=== PATIENT | female | born 1950 | race Caucasian/White ===

== ENCOUNTER 2021-04-20 06:23 | Inpatient (IN) | payer MEDICARE, OTHER ==
[2021-04-20] MEDS ORDERED: DUONEB 0.5-3 MG/3 ml Neb IH ONE ×2 (06:32→06:41)
[2021-04-20] MEDS ORDERED: PROVENTIL 2.5 MG/3 ML NEB IH ONE ×4 (06:32→06:40)
[2021-04-20] MEDS ORDERED: DELTASONE 20 MG PO ONE (06:34)
[2021-04-20] MEDS ORDERED: Vibramycin 100 MG PO ONE (06:34)
--- NOTE | 2021-04-20 06:35 | ERPHSYRPT ---
- History of Present Illness Source: patient Exam Limitations: no limitations Timing/Duration: week(s) (1) Associated Symptoms: shortness of breath, cough, other, No nausea, No vomiting Hx Tetanus, Diphtheria Vaccination/Date Given: No Hx Influenza Vaccination/Date Given: No Hx Pneumococcal Vaccination/Date Given: No <CARRIE ZABALA - Last Filed: 04/20/21 06:55> <AVELINA ROBLES - Last Filed: 04/20/21 08:20> - History of Present Illness Time Seen by Provider: 04/20/21 06:29 Physician History: The patient is a 70-year-old female who is a former smoker and quit in 2004 after smoking 1/2 pack to a pack a day since she was in her early 20s presents with a chief complaint of shortness of breath. Onset reported as a week ago. The patient reportedly has progressive shortness of breath, productive cough, rhinorrhea and sinus congestion as well as sore throat. Sore throat has since resolved. Of note, the patient's been vaccinated for Covid but has not been vaccinated for influenza. She has no formal diagnosis of emphysema or COPD. She reportedly took a home test for COVID-19 yesterday and was negative. She denies chest pain, nausea, vomiting, diarrhea, history of PE or DVT or any known malignancy. She denies any weight gain or any peripheral edema. She was accompanied by her who drove her to the emergency department. Her has been ill with similar symptoms. (CARRIE ZABALA) Allergies/Adverse Reactions: Penicillins Allergy (Mild, Verified 04/20/21 06:38) Hives Home Medications: Gabapentin 300 mg [Neurontin 300 mg] 2 cap PO HS 04/20/21 [History] Levothyroxine Sodium [Levothyroxine] 50 mcg PO DAILY 04/20/21 [History] Lisinopril 10 mg [Zestril 10 MG] 10 mg PO DAILY 04/20/21 [History] Metformin HCl 500 mg [Glucophage 500 MG] 500 mg PO BID 04/20/21 [History] Rosuvastatin Calcium 20 mg PO HS 04/20/21 [History] - Review of Systems Constitutional: No Fever, No Chills Eyes: No Symptoms Ears, Nose, & Throat: Nose Congestion, Sinus Drainage, Throat Pain, No Hoarse, No Painful Swallowing Respiratory: Cough, Dyspnea, Dyspnea on Exertion ([place]), Wheezing Cardiac: No Symptoms Abdominal/Gastrointestinal: No Abdominal Pain, No Nausea, No Vomiting Genitourinary Symptoms: No Symptoms Musculoskeletal: No Symptoms, No Deformity, No Fall Skin: No Symptoms Neurological: No Symptoms Psychological: No Symptoms Endocrine: No Symptoms Hematologic/Lymphatic: No Symptoms Immunological/Allergic: No Symptoms All Other Systems: Reviewed and Negative <VJCARRIE - Last Filed: 04/20/21 06:55> - Past Medical History Pertinent Past Medical History: Yes Neurological History: No Pertinent History ENT History: No Pertinent History Cardiac History: No Pertinent History Respiratory History: No Pertinent History Endocrine Medical History: Diabetes Type II Musculoskeletal History: Osteoarthritis GI Medical History: No Pertinent History History: No Pertinent History Psycho-Social History: No Pertinent History Female Reproductive Disorders: No Pertinent History Other Medical History: PREVIOUS L SHOULDER SURGERY FOR BONE SPURS. - Past Surgical History Past Surgical History: Yes Neuro Surgical History: No Pertinent History Cardiac: No Pertinent History Respiratory: No Pertinent History Gastrointestinal: No Pertinent History Genitourinary: No Pertinent History Musculoskeletal: No Pertinent History Female Surgical History: Tubal Ligation Other Surgical History: TONSILS ET ADNOIDS - Social History Smoking Status: Former smoker Exposure to second hand smoke: No Drug Use: none Patient Lives Alone: Yes <CARRIE ZABALA - Last Filed: 04/20/21 06:55> - Physical Exam General Appearance: no apparent distress, mild distress, alert Eye Exam: PERRL/EOMI, eyes nml inspection Ears, Nose, Throat Exam: normal ENT inspection, moist mucous membranes, No pharyngeal erythema, No tonsillar exudate Neck Exam: normal inspection, non-tender, supple, No JVD Respiratory Exam: airway intact, diminished breath sounds, wheezing (Coarse expiratory wheezing bilaterally in both upper and lower lobes when auscultating posteriorly), No chest tenderness Cardiovascular Exam: normal heart sounds, normal peripheral pulses, tachycardia, capillary refill <2 sec, No edema Gastrointestinal/Abdomen Exam: soft, No tenderness Pelvic Exam: not done Rectal Exam: deferred Back Exam: normal inspection Extremity Exam: normal inspection, No pedal edema, No swelling Neurologic Exam: alert, oriented x 3, cooperative Skin Exam: warm, dry, rash, pale, No cyanosis, No jaundice SpO2 Interpretation: normal <CARRIE ZABALA - Last Filed: 04/20/21 06:55> - Nursing Vital Signs Nursing Vital Signs: Initial Vital Signs Temperature 98.6 F 04/20/21 06:24 Pulse Rate 108 H 04/20/21 06:24 Respiratory Rate 20 04/20/21 06:24 Blood Pressure 135/87 04/20/21 06:24 O2 Sat by Pulse Oximetry 92 L 04/20/21 06:24 Pain Scale Pain Intensity 0 - Course Nursing assessment & vital signs reviewed: Yes <CARRIE ZABALA - Last Filed: 04/20/21 06:55> - Course EKG Interpreted by Me: RATE ([id number]), Sinus Tach, NORMAL AXIS, NORMAL INTERVALS, NORMAL QRS, Other (No acute ischemic changes on today's EKG.) <AVELINA ROBLES - Last Filed: 04/20/21 08:20> Ordered Tests: Active Orders 24 hr Category Date Time Status Drawing Kiln Supervisor STAT Care 04/20/21 06:31 Active EKG-ER Only STAT Care 04/20/21 06:31 Active IV Insertion STAT Care 04/20/21 06:31 Active CHEST 2 VIEWS (PA AND LAT) Stat Exams 04/20/21 06:31 Taken BMP Stat Lab 04/20/21 06:38 Completed CBC W DIFF Stat Lab 04/20/21 06:38 Completed D-DIMER QUANTITATIVE Stat Lab 04/20/21 06:38 Completed INFLUENZA A+B NAM Stat Lab 04/20/21 06:55 Completed Manual Differential NC Stat Lab 04/20/21 06:38 Completed NT PRO BNP Stat Lab 04/20/21 06:38 Completed TROPONIN Q3H Lab 04/20/21 06:38 Completed TROPONIN Q3H Lab 04/20/21 09:30 Ordered TROPONIN Q3H Lab 04/20/21 12:30 Ordered TROPONIN Q3H Lab 04/20/21 15:30 Ordered TROPONIN Q3H Lab 04/20/21 18:30 Ordered Respiratory Therapy Assessment DAILY RT 04/20/21 07:09 Completed Medication Summary Discontinued Medications Generic Name Dose Route Start Last Admin Trade Name Freq PRN Reason Stop Dose Admin Hydrocodone Bitart/Acetaminophen 10 ml 04/20/21 08:07 04/20/21 08:15 Hydrocodone/Acetaminophen 5 Ml Udcup PO 04/20/21 08:08 10 ml STAT STA Administration Hydrocodone Bitart/Acetaminophen Confirm 04/20/21 08:15 Hydrocodone/Acetaminophen 5 Ml Udcup Administered 04/20/21 08:16 Dose 10 ml .ROUTE .STK-MED ONE Albuterol Sulfate 2.5 mg 04/20/21 06:32 04/20/21 07:01 Albuterol Sulfate 2.5 Mg/3 Ml Neb IH 04/20/21 06:33 2.5 mg STAT ONE Administration Albuterol Sulfate 2.5 mg 04/20/21 06:33 04/20/21 07:08 Albuterol Sulfate 2.5 Mg/3 Ml Neb IH 04/20/21 06:34 2.5 mg STAT ONE Administration Albuterol Sulfate Confirm 04/20/21 06:40 Albuterol Sulfate 2.5 Mg/3 Ml Neb Administered 04/20/21 06:41 Dose 2.5 mg IH .STK-MED ONE Albuterol Sulfate Confirm 04/20/21 06:40 Albuterol Sulfate 2.5 Mg/3 Ml Neb Administered 04/20/21 06:41 Dose 2.5 mg IH .STK-MED ONE Albuterol/Ipratropium 3 ml 04/20/21 06:32 04/20/21 06:53 Ipratropium/Albuterol Sulfate 3 Ml Ampul.Neb IH 04/20/21 06:33 3 ml STAT ONE Administration Albuterol/Ipratropium Confirm 04/20/21 06:41 Ipratropium/Albuterol Sulfate 3 Ml Ampul.Neb Administered 04/20/21 06:42 Dose 3 ml IH .STK-MED ONE Doxycycline Hyclate 100 mg 04/20/21 06:34 04/20/21 06:48 Doxycycline Hyclate 100 Mg Tablet PO 04/20/21 06:35 100 mg STAT ONE Administration Doxycycline Hyclate Confirm 04/20/21 06:47 Doxycycline Hyclate 100 Mg Tablet Administered 04/20/21 06:48 Dose 100 mg .ROUTE .STK-MED ONE Prednisone 40 mg 04/20/21 06:34 04/20/21 06:48 Prednisone 20 Mg Tablet PO 04/20/21 06:35 40 mg STAT ONE Administration Prednisone Confirm 04/20/21 06:47 Prednisone 20 Mg Tablet Administered 04/20/21 06:48 Dose 40 mg .ROUTE .STK-MED ONE Lab/Rad Data: Laboratory Result Diagrams 04/20/21 06:38 04/20/21 06:38 Laboratory Results 04/20/21 04/20/21 04/20/21 Range/Units 06:55 06:38 06:38 WBC (4.0-10.5) K/mm3 RBC (4.1-5.4) M/mm3 Hgb (12.0-16.0) gm/dl Hct (35-47) % MCV (78-100) fl MCH (26-32) pg MCHC (32-36) g/dl RDW (11.5-14.0) % Plt Count (150-450) K/mm3 MPV (7.5-11.0) fl Segmented Neutrophils (36.0-66.0) % Lymphocytes (Manual) (24-44) % Monocytes (Manual) (0.0-12.0) % Eosinophils (Manual) (0.00-3.0) % Basophils (Manual) (0.0-1.0) % Platelet Estimate (NORMAL) RBC Morphology D-Dimer 364 (215-500) ng/mL Sodium (137-145) mmol/L Potassium (3.5-5.1) mmol/L Chloride (98-107) mmol/L Carbon Dioxide (22-30) mmol/L Anion Gap (5-15) MEQ/L BUN (7-17) mg/dL Creatinine (0.52-1.04) mg/dL Estimated GFR ML/MIN Glucose (74-106) mg/dL Calcium (8.4-10.2) mg/dL Troponin I < 0.012 (0.000-0.034) ng/mL NT-Pro-B Natriuret Pep (0-900) pg/mL Influenza Type A Ag NEGATIVE (NEGATIVE) Influenza Type B Ag NEGATIVE (NEGATIVE) 04/20/21 04/20/21 Range/Units 06:38 06:38 WBC 6.5 (4.0-10.5) K/mm3 RBC 4.68 (4.1-5.4) M/mm3 Hgb 13.3 (12.0-16.0) gm/dl Hct 41.1 (35-47) % MCV 87.8 (78-100) fl MCH 28.4 (26-32) pg MCHC 32.4 (32-36) g/dl RDW 14.1 H (11.5-14.0) % Plt Count 159 (150-450) K/mm3 MPV 9.5 (7.5-11.0) fl Segmented Neutrophils 60 (36.0-66.0) % Lymphocytes (Manual) 26 (24-44) % Monocytes (Manual) 12 (0.0-12.0) % Eosinophils (Manual) 1 (0.00-3.0) % Basophils (Manual) 1 (0.0-1.0) % Platelet Estimate NORMAL (NORMAL) RBC Morphology NORMAL D-Dimer (215-500) ng/mL Sodium 136 L (137-145) mmol/L Potassium 3.9 (3.5-5.1) mmol/L Chloride 102 (98-107) mmol/L Carbon Dioxide 25 (22-30) mmol/L Anion Gap 12.6 (5-15) MEQ/L BUN 12 (7-17) mg/dL Creatinine 0.59 (0.52-1.04) mg/dL Estimated GFR > 60.0 ML/MIN Glucose 160 H (74-106) mg/dL Calcium 9.0 (8.4-10.2) mg/dL Troponin I (0.000-0.034) ng/mL NT-Pro-B Natriuret Pep 120 (0-900) pg/mL Influenza Type A Ag (NEGATIVE) Influenza Type B Ag (NEGATIVE) <CARRIE ZABALA - Last Filed: 04/20/21 06:55> - Progress Counseled pt/family regarding: lab results, diagnosis, need for follow-up, rad results <AVELINA ROBLES - Last Filed: 04/20/21 08:20> - Progress Progress Note: 04/20/21 06:40 Nontoxic in appearance. The patient presents with shortness of breath and found to have expiratory wheezing bilaterally. In the context of being a heavy smoker for numerous years before quitting I suspect the patient may have undiagnosed emphysema or COPD and her wheezing could be an exacerbation of this brought on by viral etiology. She will receive serial nebs, prednisone, laboratory work-up to include cardiac markers and D-dimer to eval for ACS and/or PE. Chest x-ray ordered to eval for evidence of pneumonia, pleural effusion and or pneumothorax. I will go and test the patient for influenza at this time. Patient care will be transitioned to Dr. Robles at 0700 pending workup findings and reassessment. (CARRIE ZABALA) 04/20/21 08:10 Chest x-ray shows no evidence of pneumonia, pleural effusion or pneumothorax. (AVELINA ROBLES) - Departure Critical Care Time: No <CARRIE ZABALA - Last Filed: 04/20/21 06:55> <AVELINA ROBLES - Last Filed: 04/20/21 08:20> - Departure Clinical Impression: Dyspnea, Wheezing, Bronchitis Condition: Stable Referrals: ABHISHEK BLAKE [Primary Care Provider] - Follow up/PCP as directed Prescriptions: Benzonatate 100 mg PO BID PRN #20 Prednisone 20 mg [Deltasone 20 mg] 40 mg PO DAILY 4 Days #8 tablet Albuterol 8 gm Mdi Hfa [Ventolin Hfa MDI] 90 mcg IH Q4H PRN #1 gm PRN Reason: Shortness Of Breath Doxycycline Hyclate 100 mg [Vibramycin 100 MG] 100 mg PO BID 5 Days #10 tab
[2021-04-20] MEDS ORDERED: DELTASONE 20 MG ONE (06:47)
[2021-04-20] MEDS ORDERED: Vibramycin 100 MG ONE (06:47)
[2021-04-20 07:04] LABS: Hematocrit 41.1 % (35-47); Hemoglobin 13.3 gm/dl (12.0-16.0); Mean Cell Volume 87.8 fl (78-100); Mean Corpuscular Hemoglobin 28.4 pg (26-32); Mean Corpuscular Hgb Concent. 32.4 g/dl (32-36); Mean Platelet Volume 9.5 fl (7.5-11.0); Platelet Count 159 K/mm3 (150-450); Red Blood Count 4.68 M/mm3 (4.1-5.4); Red Cell Distribution Width 14.1 % (11.5-14.0); White Blood Count 6.5 K/mm3 (4.0-10.5)
[2021-04-20 07:19] LABS: ANION GAP 12.6 MEQ/L (5-15); BLOOD UREA NITROGEN 12 mg/dL (7-17); CHLORIDE 102 mmol/L (98-107); Carbon Dioxide 25 mmol/L (22-30); Creatinine 1 0.59 mg/dL (0.52-1.04); EST GLOMERULAR FILTRATION RATE > 60.0 ML/MIN; Glucose 160 mg/dL (74-106); NT PRO BNP 120 pg/mL (0-900); Potassium 3.9 mmol/L (3.5-5.1); SODIUM 136 mmol/L (137-145)
[2021-04-20 07:37] LABS: INFLUENZA A NEGATIVE (NEGATIVE); INFLUENZA B NEGATIVE (NEGATIVE)
[2021-04-20] MEDS ORDERED: HYDROCODONE-ACETAMIN 2.5-108/5 ML SOLUTION PO STA (08:07)
[2021-04-20 08:09] LABS: Basophil 1 % (0.0-1.0); Eosinophil 1 % (0.00-3.0); Lymphocytes 26 % (24-44); Monocyte 12 % (0.0-12.0); Neutrophils 60 % (36.0-66.0); Platelet Estimate NORMAL (NORMAL); Total Cells Counted 100
[2021-04-20] MEDS ORDERED: HYDROCODONE-ACETAMIN 2.5-108/5 ML SOLUTION ONE (08:15)
[2021-04-20] MEDS ORDERED: Sodium Chloride 0.9% 500 ML 500 ML IV ONE ×2 (08:26→08:28)
--- NOTE | 2021-04-20 09:11 | XRAY ---
Indication: Cough and dyspnea. Comparison: None PA/lateral chest hyperinflated and clear. Heart not enlarged. Bony thorax intact with mild osteopenia and degenerative changes. Impression: Nonacute hyperinflated chest with chronic bony findings.
[2021-04-20 11:44] LABS: INFLUENZA A NEGATIVE (NEGATIVE); INFLUENZA B NEGATIVE (NEGATIVE); RESPIRATORY SYNCTIAL VIRUS NEGATIVE (Negative); SARS-CoV-2 Xpert Express NEGATIVE (NEGATIVE)
[2021-04-20] MEDS ORDERED: Zofran 4 MG/2 ML VIAL IV PRN (13:01)
[2021-04-20] MEDS ORDERED: TYLENOL 325 MG PO PRN (13:01)
[2021-04-20] MEDS ORDERED: solu-MEDROL 125 MG, Sterile H2O 10 ml 2 ML IV SCH ×2 (14:00)
[2021-04-20] MEDS: DUONEB 0.5-3 MG/3 ml Neb IH SCH ×2 (14:09→18:54)
[2021-04-20] MEDS: Zithromax 500 MG/ 250 ML NaCl Premix 500 MG/250 ML IVPB IV SCH (14:40)
[2021-04-20] MEDS: solu-MEDROL IV SCH ×2 (14:40→21:21)
[2021-04-20] MEDS: Glucophage 500 MG PO SCH (18:14)
[2021-04-20] MEDS: NEURONTIN 300 MG PO SCH (21:21)
[2021-04-20] MEDS: ZOCOR 20MG PO SCH (21:21)
[2021-04-20] MEDS ORDERED: NON-FORMULARY ITEM (Rosuvastatin Calcium [Rosuvastatin Calcium] 20 MG Tablet) PO SCH (22:00)
[2021-04-20] MEDS: HUMULIN R SQ PRN (22:24)
[2021-04-21] MEDS: DUONEB 0.5-3 MG/3 ml Neb IH SCH ×4 (00:20→18:59)
[2021-04-21] MEDS: solu-MEDROL IV SCH ×3 (05:37→20:03)
[2021-04-21 06:05] LABS: Hematocrit 36.4 % (35-47); Hemoglobin 11.5 gm/dl (12.0-16.0); Mean Cell Volume 89.4 fl (78-100); Mean Corpuscular Hemoglobin 28.3 pg (26-32); Mean Corpuscular Hgb Concent. 31.6 g/dl (32-36); Mean Platelet Volume 9.5 fl (7.5-11.0); Platelet Count 171 K/mm3 (150-450); Red Blood Count 4.07 M/mm3 (4.1-5.4); Red Cell Distribution Width 13.9 % (11.5-14.0); White Blood Count 10.3 K/mm3 (4.0-10.5)
[2021-04-21 07:07] LABS: ALBUMIN 3.5 g/dL (3.5-5.0); ALKALINE PHOSPHATASE 71 U/L (38-126); ANION GAP 9.5 MEQ/L (5-15); BLOOD UREA NITROGEN 11 mg/dL (7-17); CHLORIDE 106 mmol/L (98-107); Calcium 8.6 mg/dL (8.4-10.2); Carbon Dioxide 25 mmol/L (22-30); Creatinine 1 0.54 mg/dL (0.52-1.04); EST GLOMERULAR FILTRATION RATE > 60.0 ML/MIN; Glucose 164 mg/dL (74-106); Potassium 3.8 mmol/L (3.5-5.1); SGOT/AST 24 U/L (14-36); SGPT/ALT 20 U/L (0-35); SODIUM 137 mmol/L (137-145); TSH, 3RD Generation 0.219 mIU/L (0.47-4.68); Total Protein 6.3 g/dL (6.3-8.2); Vitamin B12 628 pg/mL (239-931)
[2021-04-21 07:17] LABS: Lymphocytes 10 % (24-44); Monocyte 2 % (0.0-12.0); Neutrophils 88 % (36.0-66.0); Total Cells Counted 100
[2021-04-21 07:18] LABS: Platelet Estimate NORMAL (NORMAL)
[2021-04-21] MEDS: Zestril 10 MG PO SCH (09:15)
[2021-04-21] MEDS: Glucophage 500 MG PO SCH ×2 (09:15→16:40)
[2021-04-21] MEDS: Zithromax 500 MG/ 250 ML NaCl Premix 500 MG/250 ML IVPB IV SCH (09:15)
[2021-04-21] MEDS: HUMULIN R SQ PRN ×4 (09:16→21:49)
--- NOTE | 2021-04-21 09:45 | PCM.HP ---
History of Present Illness - Chief Complaint Chief Complaint: dyspnea, SOB, wheezing History of Present Illness: is a 70 year old female patient of Dr Lakhwinder Chery of [place], [place]. Patient presented to ER with gradual worsening of sob. States she started with yellow mucus from sinuses about 10 days ago then wheezing and sob started. has the same symptoms. She is a former smoker,HTN,DM2,Hypothyroid. Today she is less sob on O2 2L sats 90%. C/O feeling weak and tired. Has chronic insomnia. - Review of Systems Constitutional: Fatigue, Weakness Eyes: No Symptoms Ears, Nose, & Throat: Nose Discharge, Sinus Drainage, Throat Pain Respiratory: Cough, Short Of Breath, Wheezing Cardiac: No Symptoms Abdominal/Gastrointestinal: No Symptoms Genitourinary Symptoms: No Symptoms, Vaginal Discharge Musculoskeletal: No Symptoms Skin: No Symptoms Neurological: No Symptoms Psychological: No Symptoms Endocrine: Other (hypothyroid, chronic insomnia) Medications & Allergies Home Medications: Home Medication List Albuterol 8 gm Mdi Hfa [Ventolin Hfa MDI] 90 mcg IH Q4H PRN #1 gm 04/20/21 [Rx] Gabapentin 300 mg [Neurontin 300 mg] 2 cap PO HS 04/20/21 [History Confirmed 04/20/21] Levothyroxine Sodium [Levothyroxine] 50 mcg PO DAILY 04/20/21 [History Confirmed 04/20/21] Lisinopril 10 mg [Zestril 10 MG] 10 mg PO DAILY 04/20/21 [History Confirmed 04/20/21] Metformin HCl 500 mg [Glucophage 500 MG] 500 mg PO BID 04/20/21 [History Confirmed 04/20/21] Rosuvastatin Calcium 20 mg PO HS 04/20/21 [History Confirmed 04/20/21] Allergies/Adverse Reactions: Allergies Allergy/AdvReac Type Severity Reaction Status Date / Time Penicillins Allergy Mild Hives Verified 04/20/21 06:38 - Past Medical History Past Medical History: Yes Neurological History: No Pertinent History ENT History: No Pertinent History Cardiac History: No Pertinent History Respiratory History: No Pertinent History Endocrine Medical History: Diabetes Type II Musculoskelatal History: Osteoarthritis GI Medical History: No Pertinent History History: No Pertinent History Pyscho-Social History: No Pertinent History Reproductive Disorders: No Pertinent History Comment: PREVIOUS L SHOULDER SURGERY FOR BONE SPURS. - Female History Are you now?: No - Past Surgical History Past Surgical History: Yes Neuro Surgical History: No Pertinent History Cardiac History: No Pertinent History Respiratory Surgery: No Pertinent History GI Surgical History: No Pertinent History Genitourinary Surgical Hx: No Pertinent History Musculskeletal Surgical Hx: No Pertinent History Female Surgical History: Tubal Ligation Other Surgical History: TONSILS ET ADNOIDS - Social History Smoking Status: Former smoker Exposure to second hand smoke: No Alcohol: None Drug Use: none - Physical Exam Vital Signs: Vital Signs - 24 hr Temp Pulse Resp BP Pulse Ox 04/21/21 08:00 98.3 F 71 20 129/62 95 04/21/21 07:00 78 18 92 L 04/21/21 04:00 96.9 F 97 H 16 136/62 91 L 04/21/21 00:20 109 H 18 93 L 04/20/21 23:51 97.7 F 98 H 16 112/60 95 04/20/21 19:58 96.6 F 110 H 18 144/63 95 04/20/21 18:55 114 H 20 92 L 04/20/21 16:00 96.6 F 104 H 20 139/61 93 L 04/20/21 14:13 100 H 20 92 L 04/20/21 13:18 97.7 F 97 H 20 142/66 94 L 04/20/21 12:00 96 H 16 116/71 95 04/20/21 11:00 90 12 116/71 96 04/20/21 10:45 100 H 20 160/66 97 General Appearance: no apparent distress, lethargy (fatigues/content to be laying in bed) Neurologic Exam: alert, oriented x 3, cooperative, normal mood/affect Eye Exam: eyes nml inspection Ears, Nose, Throat Exam: moist mucous membranes, other (no nasal discharge) Respiratory Exam: diminished breath sounds, wheezing (mid left) Cardiovascular Exam: regular rate/rhythm Gastrointestinal/Abdomen Exam: soft, normal bowel sounds, tenderness (nontender) Pelvic Exam: not done Rectal Exam: not done Back Exam: other (increased thoracic kyphosis) Skin Exam: warm, dry, pale Results - Labs Lab/Micro Results: Lab Results-Last 24 Hours 04/20/21 04/20/21 04/20/21 Range/Units 09:45 10:50 12:49 WBC (4.0-10.5) K/mm3 RBC (4.1-5.4) M/mm3 Hgb (12.0-16.0) gm/dl Hct (35-47) % MCV (78-100) fl MCH (26-32) pg MCHC (32-36) g/dl RDW (11.5-14.0) % Plt Count (150-450) K/mm3 MPV (7.5-11.0) fl Segmented Neutrophils (36.0-66.0) % Lymphocytes (Manual) (24-44) % Monocytes (Manual) (0.0-12.0) % Platelet Estimate (NORMAL) RBC Morphology Sodium (137-145) mmol/L Potassium (3.5-5.1) mmol/L Chloride (98-107) mmol/L Carbon Dioxide (22-30) mmol/L Anion Gap (5-15) MEQ/L BUN (7-17) mg/dL Creatinine (0.52-1.04) mg/dL Estimated GFR ML/MIN Glucose (74-106) mg/dL POC Glucometer (74 to 106) mg/dL Calcium (8.4-10.2) mg/dL Total Bilirubin (0.2-1.3) mg/dL AST (14-36) U/L ALT (0-35) U/L Alkaline Phosphatase (38-126) U/L Troponin I < 0.012 < 0.012 (0.000-0.034) ng/mL Serum Total Protein (6.3-8.2) g/dL Albumin (3.5-5.0) g/dL Vitamin B12 (239-931) pg/mL TSH 3rd Generation (0.47-4.68) mIU/L Influenza Type A Ag NEGATIVE (NEGATIVE) Influenza Type B Ag NEGATIVE (NEGATIVE) RSV (PCR) NEGATIVE (Negative) SARS-CoV-2 (PCR) NEGATIVE (NEGATIVE) 04/20/21 04/20/21 04/20/21 Range/Units 15:30 16:42 18:43 WBC (4.0-10.5) K/mm3 RBC (4.1-5.4) M/mm3 Hgb (12.0-16.0) gm/dl Hct (35-47) % MCV (78-100) fl MCH (26-32) pg MCHC (32-36) g/dl RDW (11.5-14.0) % Plt Count (150-450) K/mm3 MPV (7.5-11.0) fl Segmented Neutrophils (36.0-66.0) % Lymphocytes (Manual) (24-44) % Monocytes (Manual) (0.0-12.0) % Platelet Estimate (NORMAL) RBC Morphology Sodium (137-145) mmol/L Potassium (3.5-5.1) mmol/L Chloride (98-107) mmol/L Carbon Dioxide (22-30) mmol/L Anion Gap (5-15) MEQ/L BUN (7-17) mg/dL Creatinine (0.52-1.04) mg/dL Estimated GFR ML/MIN Glucose (74-106) mg/dL POC Glucometer 248 H (74 to 106) mg/dL Calcium (8.4-10.2) mg/dL Total Bilirubin (0.2-1.3) mg/dL AST (14-36) U/L ALT (0-35) U/L Alkaline Phosphatase (38-126) U/L Troponin I < 0.012 < 0.012 (0.000-0.034) ng/mL Serum Total Protein (6.3-8.2) g/dL Albumin (3.5-5.0) g/dL Vitamin B12 (239-931) pg/mL TSH 3rd Generation (0.47-4.68) mIU/L Influenza Type A Ag (NEGATIVE) Influenza Type B Ag (NEGATIVE) RSV (PCR) (Negative) SARS-CoV-2 (PCR) (NEGATIVE) 04/20/21 04/21/21 04/21/21 Range/Units 21:44 05:20 05:20 WBC 10.3 (4.0-10.5) K/mm3 RBC 4.07 L (4.1-5.4) M/mm3 Hgb 11.5 L (12.0-16.0) gm/dl Hct 36.4 (35-47) % MCV 89.4 (78-100) fl MCH 28.3 (26-32) pg MCHC 31.6 L (32-36) g/dl RDW 13.9 (11.5-14.0) % Plt Count 171 (150-450) K/mm3 MPV 9.5 (7.5-11.0) fl Segmented Neutrophils 88 H (36.0-66.0) % Lymphocytes (Manual) 10 L (24-44) % Monocytes (Manual) 2 (0.0-12.0) % Platelet Estimate NORMAL (NORMAL) RBC Morphology NORMAL Sodium 137 (137-145) mmol/L Potassium 3.8 (3.5-5.1) mmol/L Chloride 106 (98-107) mmol/L Carbon Dioxide 25 (22-30) mmol/L Anion Gap 9.5 (5-15) MEQ/L BUN 11 (7-17) mg/dL Creatinine 0.54 (0.52-1.04) mg/dL Estimated GFR > 60.0 ML/MIN Glucose 164 H (74-106) mg/dL POC Glucometer 237 H (74 to 106) mg/dL Calcium 8.6 (8.4-10.2) mg/dL Total Bilirubin 0.30 (0.2-1.3) mg/dL AST 24 (14-36) U/L ALT 20 (0-35) U/L Alkaline Phosphatase 71 (38-126) U/L Troponin I (0.000-0.034) ng/mL Serum Total Protein 6.3 (6.3-8.2) g/dL Albumin 3.5 (3.5-5.0) g/dL Vitamin B12 628 (239-931) pg/mL TSH 3rd Generation 0.219 L (0.47-4.68) mIU/L Influenza Type A Ag (NEGATIVE) Influenza Type B Ag (NEGATIVE) RSV (PCR) (Negative) SARS-CoV-2 (PCR) (NEGATIVE) 04/21/21 Range/Units 07:03 WBC (4.0-10.5) K/mm3 RBC (4.1-5.4) M/mm3 Hgb (12.0-16.0) gm/dl Hct (35-47) % MCV (78-100) fl MCH (26-32) pg MCHC (32-36) g/dl RDW (11.5-14.0) % Plt Count (150-450) K/mm3 MPV (7.5-11.0) fl Segmented Neutrophils (36.0-66.0) % Lymphocytes (Manual) (24-44) % Monocytes (Manual) (0.0-12.0) % Platelet Estimate (NORMAL) RBC Morphology Sodium (137-145) mmol/L Potassium (3.5-5.1) mmol/L Chloride (98-107) mmol/L Carbon Dioxide (22-30) mmol/L Anion Gap (5-15) MEQ/L BUN (7-17) mg/dL Creatinine (0.52-1.04) mg/dL Estimated GFR ML/MIN Glucose (74-106) mg/dL POC Glucometer 171 H (74 to 106) mg/dL Calcium (8.4-10.2) mg/dL Total Bilirubin (0.2-1.3) mg/dL AST (14-36) U/L ALT (0-35) U/L Alkaline Phosphatase (38-126) U/L Troponin I (0.000-0.034) ng/mL Serum Total Protein (6.3-8.2) g/dL Albumin (3.5-5.0) g/dL Vitamin B12 (239-931) pg/mL TSH 3rd Generation (0.47-4.68) mIU/L Influenza Type A Ag (NEGATIVE) Influenza Type B Ag (NEGATIVE) RSV (PCR) (Negative) SARS-CoV-2 (PCR) (NEGATIVE) Accuchecks Date 04/20/21 Date 04/20/21 Time 22:18 Time 17:04 - Radiology Impressions Radiology Exams & Impressions: Radiology Procedures Category Date Time Status CHEST 2 VIEWS (PA AND LAT) Stat Exams 04/20/21 06:31 Completed - Other Procedures and Tests Respiratory Therapy 04/20/21 13:01 Oxygen Nasal Cannula 2 lpm 04/21/21 07:00 Respiratory Therapy Assessment DAILY 04/21/21 08:42 Qualify for Home Oxygen TODAY Assessment/Plan (1) Bronchitis Current Visit: Yes Status: Acute Assessment & Plan: slight improvement this morning given IV Zithromax,solumedrol and Albuterol neb tx,on O2 at 2L Code(s): J40 - BRONCHITIS, NOT SPECIFIED ACUTE OR CHRONIC (2) Dyspnea Current Visit: Yes Status: Acute Assessment & Plan: improved on 2L o2 still low 90s O2sat Code(s): R06.00 - DYSPNEA, UNSPECIFIED (3) Former cigarette smoker Current Visit: Yes Status: Chronic Code(s): Z87.891 - PERSONAL HISTORY OF NICOTINE DEPENDENCE (4) DM2 (diabetes mellitus, type 2) Current Visit: Yes Status: Chronic Qualifiers: Diabetes mellitus tank terminal gauger insulin use: without tank terminal gauger use Assessment & Plan: monitor (5) HTN (hypertension) Current Visit: Yes Status: Chronic Assessment & Plan: monitor Code(s): I10 - ESSENTIAL (PRIMARY) HYPERTENSION (6) Hypothyroid Current Visit: Yes Status: Chronic Assessment & Plan: TSH low and ptn with insomnia-decreased dose Levothyroxine 50mcg to 25 mcg Code(s): E03.9 - HYPOTHYROIDISM, UNSPECIFIED
[2021-04-21] MEDS ORDERED: LEVOTHYROXINE SODIUM 50 MCG PO SCH (10:00)
[2021-04-21] MEDS ORDERED: SYNTHROID 50 MCG PO SCH (10:00)
[2021-04-21] MEDS ORDERED: Robitussin AC Syrup Unit Dose Cup PO PRN (19:23)
[2021-04-21] MEDS ORDERED: Sterile H2O 10 ml IJ ONE (19:45)
[2021-04-21] MEDS: ZOCOR 20MG PO SCH (20:02)
[2021-04-21] MEDS: NEURONTIN 300 MG PO SCH (20:02)
[2021-04-22] MEDS: DUONEB 0.5-3 MG/3 ml Neb IH SCH ×4 (00:05→18:50)
[2021-04-22] MEDS: solu-MEDROL IV SCH ×3 (05:39→22:30)
[2021-04-22 06:24] LABS: Hematocrit 33.6 % (35-47); Hemoglobin 10.5 gm/dl (12.0-16.0); Mean Cell Volume 90.6 fl (78-100); Mean Corpuscular Hemoglobin 28.3 pg (26-32); Mean Corpuscular Hgb Concent. 31.3 g/dl (32-36); Mean Platelet Volume 9.7 fl (7.5-11.0); Platelet Count 195 K/mm3 (150-450); Red Blood Count 3.71 M/mm3 (4.1-5.4); Red Cell Distribution Width 14.5 % (11.5-14.0); White Blood Count 14.4 K/mm3 (4.0-10.5)
[2021-04-22 06:49] LABS: ALBUMIN 3.1 g/dL (3.5-5.0); ALKALINE PHOSPHATASE 57 U/L (38-126); ANION GAP 9.4 MEQ/L (5-15); BLOOD UREA NITROGEN 19 mg/dL (7-17); CHLORIDE 106 mmol/L (98-107); Calcium 8.4 mg/dL (8.4-10.2); Carbon Dioxide 25 mmol/L (22-30); Creatinine 1 0.53 mg/dL (0.52-1.04); EST GLOMERULAR FILTRATION RATE > 60.0 ML/MIN; Glucose 174 mg/dL (74-106); SGOT/AST 20 U/L (14-36); SGPT/ALT 18 U/L (0-35); SODIUM 136 mmol/L (137-145); Total Protein 5.7 g/dL (6.3-8.2)
[2021-04-22] MEDS: Glucophage 500 MG PO SCH ×2 (08:01→16:29)
[2021-04-22] MEDS: HUMULIN R SQ PRN ×3 (08:01→22:39)
[2021-04-22 08:14] LABS: BAND 5 % (0.0-2.0); Lymphocytes 19 % (24-44); Monocyte 1 % (0.0-12.0); Neutrophils 75 % (36.0-66.0); Platelet Estimate NORMAL (NORMAL); Total Cells Counted 100
[2021-04-22] MEDS: SYNTHROID 25 MCG PO SCH (09:47)
[2021-04-22] MEDS: Zithromax 500 MG/ 250 ML NaCl Premix 500 MG/250 ML IVPB IV SCH (09:47)
[2021-04-22] MEDS: Zestril 10 MG PO SCH (09:47)
[2021-04-22] MEDS ORDERED: Magnesium 1 Gm / 100 Ml D5W*** 100 ML IV SCH (10:00)
[2021-04-22] MEDS: ZOCOR 20MG PO SCH (22:30)
[2021-04-22] MEDS: NEURONTIN 300 MG PO SCH (22:30)
[2021-04-23] MEDS: DUONEB 0.5-3 MG/3 ml Neb IH SCH ×3 (00:14→13:06)
[2021-04-23 05:31] LABS: Hematocrit 34.7 % (35-47); Hemoglobin 10.9 gm/dl (12.0-16.0); Mean Cell Volume 90.1 fl (78-100); Mean Corpuscular Hemoglobin 28.3 pg (26-32); Mean Corpuscular Hgb Concent. 31.4 g/dl (32-36); Mean Platelet Volume 9.5 fl (7.5-11.0); Platelet Count 214 K/mm3 (150-450); Red Blood Count 3.85 M/mm3 (4.1-5.4); Red Cell Distribution Width 14.3 % (11.5-14.0); White Blood Count 14.8 K/mm3 (4.0-10.5)
[2021-04-23] MEDS: solu-MEDROL IV SCH ×2 (05:50→15:03)
[2021-04-23 05:53] LABS: ALBUMIN 3.2 g/dL (3.5-5.0); ALKALINE PHOSPHATASE 64 U/L (38-126); ANION GAP 10.3 MEQ/L (5-15); BLOOD UREA NITROGEN 17 mg/dL (7-17); CHLORIDE 103 mmol/L (98-107); Calcium 8.7 mg/dL (8.4-10.2); Carbon Dioxide 29 mmol/L (22-30); Creatinine 1 0.56 mg/dL (0.52-1.04); EST GLOMERULAR FILTRATION RATE > 60.0 ML/MIN; Glucose 154 mg/dL (74-106); SGOT/AST 22 U/L (14-36); SGPT/ALT 23 U/L (0-35); SODIUM 139 mmol/L (137-145); Total Protein 5.6 g/dL (6.3-8.2)
[2021-04-23 06:46] LABS: BAND 3 % (0.0-2.0); Lymphocytes 8 % (24-44); Monocyte 2 % (0.0-12.0); Neutrophils 87 % (36.0-66.0); Platelet Estimate NORMAL (NORMAL); Total Cells Counted 100
[2021-04-23] MEDS: Glucophage 500 MG PO SCH (08:23)
[2021-04-23] MEDS: HUMULIN R SQ PRN ×2 (08:23→12:28)
[2021-04-23] MEDS: Zithromax 500 MG/ 250 ML NaCl Premix 500 MG/250 ML IVPB IV SCH (08:23)
[2021-04-23] MEDS: SYNTHROID 25 MCG PO SCH (08:23)
[2021-04-23] MEDS: Zestril 10 MG PO SCH (08:23)
[2021-04-23 13:11] VITALS: O2SAT 95
[2021-04-23] MEDS ORDERED: IMODIUM 2 MG PO PRN (13:27)
--- NOTE | 2021-04-23 15:39 | PCM.DCORD ---
- Discharge Prescriptions: New Albuterol 8 gm Mdi Hfa [Ventolin Hfa MDI] 90 mcg IH Q4H PRN #1 gm PRN Reason: Shortness Of Breath Albuterol Sulfate [Albuterol Sulfate Hfa] 18 gm IH Q4-6HPRN PRN #1 PRN Reason: Shortness Of Breath/Wheezing Prednisone 10 mg [Deltasone 10 mg] 10 mg PO DAILY #30 tablet Inhaler, Assist Devices [Space Chamber] 1 each MC DAILY #1 Continue Rosuvastatin Calcium 20 mg PO HS Metformin HCl 500 mg [Glucophage 500 MG] 500 mg PO BID Lisinopril 10 mg [Zestril 10 MG] 10 mg PO DAILY Levothyroxine Sodium [Levothyroxine] 50 mcg PO DAILY Gabapentin 300 mg [Neurontin 300 mg] 2 cap PO HS Instructions: Oxygen Therapy, Adult (DC) Additional Instructions: YOU NEED TO WEARS 2L/NC AT ALL TIMES CALL [facility] [place] WHEN YOU GET HOME AT [phone] SO THEY CAN DELIVER YOUR HOME CONCENTRATOR
--- NOTE | 2021-04-23 15:47 | PCM.DS ---
Discharge Summary Date of Admission: 04/21/21 09:39 Date of Discharge: 04/23/21 Admitting Physician: MIGUEL ÁNGEL GALLARDO DO Primary Care Provider: ABHISHEK BLAKE Allergies Allergies Penicillins Allergy (Mild, Verified 04/20/21 06:38) [facility] Summary - Hospital Course Hospital Course: Patient was admitted from ER with acute bronchitis ,hypoxia. Patient has a long smoking Hx but was not aware of COPD diagnosis in the past. She slowly improved on Solumedrol,IV Zithromax and Neb treatments DUoneb. Patient was afebrile during her stay but WBC increased due to Solumedrol. Note patient tested neg for Covid,RSV and Influenza A&B - all negative. She will be released home with her on O2 @L continuous to see her PCP Dr Abhishek Marcelino. Predniisone and albuterol with spacer was sent to [facility]. - Vitals & Intake/Output Vital Signs: Vital Signs Temperature 97.1 F 04/23/21 12:00 Pulse Rate 93 H 04/23/21 13:09 Respiratory Rate 18 04/23/21 13:09 Blood Pressure 130/61 04/23/21 12:00 O2 Sat by Pulse Oximetry 95 04/23/21 13:09 Intake & Output: Intake & Output 04/21/21 04/22/21 04/23/21 04/24/21 11:59 11:59 11:59 11:59 Intake Total 3182 920 1500 480 Output Total 1800 0 Balance 4057 367 9564 480 Weight 65.6 kg 66.5 kg 66.5 kg - Lab Result Diagrams: 04/23/21 04:40 04/23/21 05:00 Lab Results-Last 24 Hrs: Lab Results-Last 24 Hours 04/22/21 04/22/21 04/23/21 Range/Units 15:48 21:51 04:40 WBC 14.8 H (4.0-10.5) K/mm3 RBC 3.85 L (4.1-5.4) M/mm3 Hgb 10.9 L (12.0-16.0) gm/dl Hct 34.7 L (35-47) % MCV 90.1 (78-100) fl MCH 28.3 (26-32) pg MCHC 31.4 L (32-36) g/dl RDW 14.3 H (11.5-14.0) % Plt Count 214 (150-450) K/mm3 MPV 9.5 (7.5-11.0) fl Segmented Neutrophils 87 H (36.0-66.0) % Band Neutrophils 3 H (0.0-2.0) % Lymphocytes (Manual) 8 L (24-44) % Monocytes (Manual) 2 (0.0-12.0) % Platelet Estimate NORMAL (NORMAL) RBC Morphology NORMAL Sodium (137-145) mmol/L Potassium (3.5-5.1) mmol/L Chloride (98-107) mmol/L Carbon Dioxide (22-30) mmol/L Anion Gap (5-15) MEQ/L BUN (7-17) mg/dL Creatinine (0.52-1.04) mg/dL Estimated GFR ML/MIN Glucose (74-106) mg/dL POC Glucometer 252 H 276 H (74 to 106) mg/dL Calcium (8.4-10.2) mg/dL Total Bilirubin (0.2-1.3) mg/dL AST (14-36) U/L ALT (0-35) U/L Alkaline Phosphatase (38-126) U/L Serum Total Protein (6.3-8.2) g/dL Albumin (3.5-5.0) g/dL 04/23/21 04/23/21 04/23/21 Range/Units 05:00 07:39 11:53 WBC (4.0-10.5) K/mm3 RBC (4.1-5.4) M/mm3 Hgb (12.0-16.0) gm/dl Hct (35-47) % MCV (78-100) fl MCH (26-32) pg MCHC (32-36) g/dl RDW (11.5-14.0) % Plt Count (150-450) K/mm3 MPV (7.5-11.0) fl Segmented Neutrophils (36.0-66.0) % Band Neutrophils (0.0-2.0) % Lymphocytes (Manual) (24-44) % Monocytes (Manual) (0.0-12.0) % Platelet Estimate (NORMAL) RBC Morphology Sodium 139 (137-145) mmol/L Potassium 4.0 (3.5-5.1) mmol/L Chloride 103 (98-107) mmol/L Carbon Dioxide 29 (22-30) mmol/L Anion Gap 10.3 (5-15) MEQ/L BUN 17 (7-17) mg/dL Creatinine 0.56 (0.52-1.04) mg/dL Estimated GFR > 60.0 ML/MIN Glucose 154 H (74-106) mg/dL POC Glucometer 197 H 212 H (74 to 106) mg/dL Calcium 8.7 (8.4-10.2) mg/dL Total Bilirubin 0.20 (0.2-1.3) mg/dL AST 22 (14-36) U/L ALT 23 (0-35) U/L Alkaline Phosphatase 64 (38-126) U/L Serum Total Protein 5.6 L (6.3-8.2) g/dL Albumin 3.2 L (3.5-5.0) g/dL Micro Results-Entire Visit: Accuchecks Date 04/23/21 Date 04/22/21 Date 04/22/21 Time 12:00 Time 21:50 Time 16:43 - Procedures and Test Procedures and Tests throughout Hospitalization: Therapy Orders & Screens 04/20/21 07:09 Respiratory Therapy Assessment DAILY Comment: 04/20/21 13:01 EKG REPEAT IN AM Comment: Oxygen Nasal Cannula 2 lpm Comment: Respiratory Therapy Assessment DAILY Comment: 04/21/21 07:00 Respiratory Therapy Assessment DAILY Comment: Diagnosis: dyspnea, SOB, wheezing 04/21/21 08:42 Qualify for Home Oxygen TODAY Comment: Diagnosis: dyspnea, SOB, wheezing 04/23/21 12:48 Qualify for Home Oxygen TODAY Comment: Diagnosis: dyspnea, SOB, wheezing Final Diagnosis/Problem List - Final Discharge Diagnosis/Problem (1) Bronchitis Current Visit: Yes Status: Acute Code(s): J40 - BRONCHITIS, NOT SPECIFIED ACUTE OR CHRONIC (2) Dyspnea Current Visit: Yes Status: Acute Code(s): R06.00 - DYSPNEA, UNSPECIFIED (3) Former cigarette smoker Current Visit: Yes Status: Chronic Code(s): Z87.891 - PERSONAL HISTORY OF NICOTINE DEPENDENCE (4) DM2 (diabetes mellitus, type 2) Current Visit: Yes Status: Chronic (5) HTN (hypertension) Current Visit: Yes Status: Chronic Code(s): I10 - ESSENTIAL (PRIMARY) HYPERTENSION (6) Hypothyroid Current Visit: Yes Status: Chronic Code(s): E03.9 - HYPOTHYROIDISM, UNSPECIFIED - Discharge Disposition: Home, Self-Care Condition: Stable Prescriptions: New Albuterol 8 gm Mdi Hfa [Ventolin Hfa MDI] 90 mcg IH Q4H PRN #1 gm PRN Reason: Shortness Of Breath Albuterol Sulfate [Albuterol Sulfate Hfa] 18 gm IH Q4-6HPRN PRN #1 PRN Reason: Shortness Of Breath/Wheezing Prednisone 10 mg [Deltasone 10 mg] 10 mg PO DAILY #30 tablet Inhaler, Assist Devices [Space Chamber] 1 each MC DAILY #1 Continue Rosuvastatin Calcium 20 mg PO HS Metformin HCl 500 mg [Glucophage 500 MG] 500 mg PO BID Lisinopril 10 mg [Zestril 10 MG] 10 mg PO DAILY Levothyroxine Sodium [Levothyroxine] 50 mcg PO DAILY Gabapentin 300 mg [Neurontin 300 mg] 2 cap PO HS Instructions: Oxygen Therapy, Adult (DC) Additional Instructions: YOU NEED TO WEARS 2L/NC AT ALL TIMES CALL [facility] WHEN YOU GET HOME AT [phone] SO THEY CAN DELIVER YOUR HOME CONCENTRATOR Follow up with: MIGUEL ÁNGEL GALLARDO DO [Family Provider] - ABHISHEK BLAKE [Primary Care Provider] -
[2021-04-23 18:17] VITALS: BP 148/76; PULSE 80
== END 2021-04-23 16:20 | disposition home or self-care (01) | DRG 202 ==
LOC: ED 06:23 → MED SURG 12:53 → OBSVTOIN 04-21 09:39
PROVIDERS: ADMIT Family Medicine; ATTEND Family Medicine
DX: J40 Bronchitis, not specified as acute or chronic (principal); J44.1 Chronic obstructive pulmonary disease with (acute) exacerbation; R06.00 Dyspnea, unspecified; R09.02 Hypoxemia; E11.9 Type 2 diabetes mellitus without complications; I10 Essential (primary) hypertension; E03.9 Hypothyroidism, unspecified; R06.2 Wheezing; Z79.899 Other long term (current) drug therapy; Z20.828 Contact with and (suspected) exposure to other viral communicable diseases; Z87.891 Personal history of nicotine dependence
CPT/HCPCS: 0241U; 36000; 36415; 71046; 80048; 80053; 82607; 82947; 83036; 83880; 84443; 84484; 85025; 85379; 87400; 93005; 93041; 94640; 94760; 99285; G0378; U0003; J0456; J1815; J2930; J3475; J7609; A9270-GY

== ENCOUNTER 2022-08-20 12:29 | Emergency (ER) | payer MEDICARE, OTHER ==
[2022-08-20] MEDS ORDERED: HYDROCODONE-ACETAMIN 10-325 MG PO STA (13:08)
[2022-08-20 13:13] VITALS: O2SAT 95
--- NOTE | 2022-08-20 13:13 | ERPHSYRPT ---
- History of Present Illness Time Seen by Provider: 08/20/22 12:48 Source: patient, family Exam Limitations: no limitations Patient Subjective Stated Complaint: pt here for a fall today, a 500 lb wooden horse fell agaist her, she now co pain to left rib area and left lower leg from knee to toes Triage Nursing Assessment: pt alert, arrived per wc, uable to bear wt on left leg, has swelling to top of left foot, strong pedal pulse, Physician History: 72 years old female presented in the ER with chief complaint of injury to left lower extremity and left ribs when a heavy wooden horse fell against her and she hit the ground. She twisted her left ankle. Complaining of moderate to severe sharp pain from knee down to the toes with movements and partial relief with being still. Also complaining of pain in the left posterolateral ribs with deep breathing and coughing. No difficulty breathing otherwise. No chest pain otherwise. Did not hit her head, no loss of consciousness. No injury anywhere else. Occurred: this morning Injuries/Pain Location: chest, lower extremity Loss of Consciousness: no loss of consciousness Quality: sharpness Severity of Pain-Max: moderate Severity of Pain-Current: moderate Modifying Factors: Improves With: immobilization. Worsens With: movement Associated Symptoms (Fall): chest pain, extremity injury Allergies/Adverse Reactions: Penicillins Allergy (Mild, Verified 08/20/22 12:49) Hives Home Medications: Gabapentin [Neurontin ] 2 cap PO HS 04/20/21 [History] Levothyroxine Sodium [Levothyroxine] 50 mcg PO DAILY 04/20/21 [History] Lisinopril 10 mg [Zestril 10 MG] 10 mg PO DAILY 04/20/21 [History] Metformin HCl 500 mg [Glucophage 500 MG] 500 mg PO BID 04/20/21 [History] Rosuvastatin Calcium 20 mg PO HS 04/20/21 [History] Hx Tetanus, Diphtheria Vaccination/Date Given: No Hx Influenza Vaccination/Date Given: Yes Hx Pneumococcal Vaccination/Date Given: Yes Immunizations Up to Date: Yes Travel Risk - International Travel Have you traveled outside of the country in past 3 weeks: No - Coronavirus Screening Are you exhibiting any of the following symptoms?: No Close contact with a COVID-19 positive Pt in past - Days: No - Vaccine Status Have you recieved a Covid-19 vaccination: Yes Rib Matcher And Fitter: Moderna - Vaccination Dates Date of 2cond Vaccination (if applicable): july 2020 - Review of Systems Constitutional: No Symptoms Eyes: No Symptoms Ears, Nose, & Throat: No Symptoms Respiratory: No Symptoms Cardiac: No Palpitations, No Orthopnea Abdominal/Gastrointestinal: No Symptoms Genitourinary Symptoms: No Symptoms Musculoskeletal: Fall, Injury Skin: No Symptoms Neurological: No Symptoms Psychological: No Symptoms Endocrine: No Symptoms Hematologic/Lymphatic: No Symptoms - Past Medical History Pertinent Past Medical History: Yes Neurological History: No Pertinent History ENT History: No Pertinent History Cardiac History: No Pertinent History Respiratory History: No Pertinent History Endocrine Medical History: Diabetes Type II Musculoskeletal History: Osteoarthritis GI Medical History: No Pertinent History History: No Pertinent History Psycho-Social History: No Pertinent History Female Reproductive Disorders: No Pertinent History Other Medical History: PREVIOUS L SHOULDER SURGERY FOR BONE SPURS. - Past Surgical History Past Surgical History: Yes Neuro Surgical History: No Pertinent History Cardiac: No Pertinent History Respiratory: No Pertinent History Gastrointestinal: No Pertinent History Genitourinary: No Pertinent History Musculoskeletal: No Pertinent History Female Surgical History: Tubal Ligation Other Surgical History: TONSILS ET ADNOIDS - Social History Smoking Status: Former smoker Exposure to second hand smoke: No Drug Use: none Patient Lives Alone: No - Nursing Vital Signs Nursing Vital Signs: Initial Vital Signs O2 Sat by Pulse Oximetry 95 08/20/22 14:38 Pain Scale Pain Intensity 8 - [place] Coma Score Best Eye Response (Anastacia): (4) open spontaneously Best Verbal Response (Anastacia): (5) oriented Best Motor Response (Anastacia): (6) obeys commands Anastacia Total: 15 - Physical Exam General Appearance: no apparent distress, alert Head Injury: no evidence of injury, No Gaona's Sign, No contusions Eye Exam: PERRL/EOMI, eyes nml inspection ENT Exam: airway nml, No evidence of ENT injury Neck Exam: supple, trachea midline, full range of motion, normal alignment, normal inspection Respiratory/Chest Exam: chest tenderness (Left posterolateral mid to lower chest wall with no crepitus. No obvious bruising or swelling.), normal breath sounds Cardiovascular Exam: normal heart sounds, regular rate/rhythm Gastrointestinal Exam: soft, normal bowel sounds, No tenderness, No guarding Back Exam: normal inspection, normal range of motion Extremity Exam: capillary refill <3 sec, pain with movement (Left ankle/toes with some swelling around. Bimalleolar tenderness.) Neurologic Exam: alert, oriented x 3, cooperative, virtual classroom manager II-XII nml as tested, normal mood/affect Skin Exam: normal color SpO2 Interpretation: normal SpO2: 95 O2 Delivery: Room Air Ordered Tests: Active Orders 24 hr Category Date Time Status ANKLE (3 VIEWS) Stat Exams 08/20/22 13:07 Completed CHEST 1 VIEW (PORTABLE) Stat Exams 08/20/22 13:07 Completed FOOT (MINIMUM 3 VIEWS) Stat Exams 08/20/22 13:08 Completed LOWER LEG Stat Exams 08/20/22 13:09 Completed RIBS UNILATERAL Stat Exams 08/20/22 13:06 Completed Medication Summary Discontinued Medications Generic Name Dose Route Start Last Admin Trade Name Michaelq PRN Reason Stop Dose Admin Hydrocodone Bitart/Acetaminophen 1 tablet 08/20/22 13:08 08/20/22 13:16 Hydrocodone/Acetamin 10-325 Mg Tablet PO 08/20/22 13:09 1 tablet ONCE STA Administration Hydrocodone Bitart/Acetaminophen Confirm 08/20/22 13:14 Hydrocodone/Acetamin 10-325 Mg Tablet Administered 08/20/22 13:15 Dose 1 tablet .ROUTE .STK-MED ONE - Progress Progress: improved, pain not gone completely, re-examined Progress Note: 08/20/22 14:31 71-year-old is evaluated for injury to left lower extremity and left ribs after heavy wooden horse fell against her. She is given symptomatic treatment for pain, on reevaluation feeling better. She is not in any distress. Lungs bilateral clear to auscultation. No crepitus. No bruising on the months. X- rays rib series negative for any acute fracture ribs, pneumothorax or hemothorax. No abdominal tenderness. No midline tenderness to the back. X-r ays lower extremity showed oblique fracture lower end of fibula and fracture second and third toes proximal phalanxes. Placed in a posterior splint, crutches, pain medications and outpatient follow-up discussed with patient and family in detail along with the results of x-rays and plan of care which they agreed. Counseled pt/family regarding: diagnosis, need for follow-up, rad results Medical Desision Making - Independent Historian Additional History obtained from: Spouse - Discussion of managment Reviewed:: Test results, Need for additional workup Agreed on:: need for follow-up - Risk of complications The pt has a mod risk of morbidity or mortality based on: Need for prescription drug management - Departure Departure Disposition: Home Clinical Impression: Fibula fracture, Toe fracture, left, Chest wall contusion, Ankle fracture Condition: Stable Critical Care Time: No Referrals: ABHISHEK BLAKE [Primary Care Provider] - Follow Up with PCP/3 days ROSANGELA LOVE DPM [ACTIVE STAFF] - Follow up/PCP as directed (Tuesday for reevaluation) Instructions: Ankle Fracture (DC) Additional Instructions: Take pain medications as needed. Nonweightbearing until evaluated by podiatry. Intermittent ice application and keep it elevated. Follow-up with podiatry for reevaluation Tuesday. Return to ER for any worsening. Prescriptions: Hydrocodone/Acetaminophen [Hydrocodone-Acetamin 5-325 mg] 1 tab PO Q6HPRN PRN 3 Days #12 tablet MDD 4 PRN Reason: Pain
[2022-08-20] MEDS ORDERED: HYDROCODONE-ACETAMIN 10-325 MG ONE (13:14)
--- NOTE | 2022-08-20 13:46 | XRAY ---
Indication: Pain following fall. Comparison: None 2 view left ribs demonstrates osteopenia and mild/moderate degenerative changes throughout the visualized spine and left shoulder. No other bony, articular, or soft tissue abnormalities.
--- NOTE | 2022-08-20 13:46 | XRAY ---
Indication: Chest pain following fall. Comparison: April 20, 2021 Portable apical lordotic chest remains hyperinflated and clear. Heart not enlarged. Bony thorax intact again with osteopenia and mild degenerative changes. No new/acute findings.
--- NOTE | 2022-08-20 13:48 | XRAY ---
Indication: Pain following fall. Comparison: None 2 view left lower leg demonstrates nondisplaced oblique acute fracture distal shaft fibula. Elsewhere osteopenia and small spurring tibial tuberosity/calcaneus. No other bony, articular, or soft tissue abnormalities.
--- NOTE | 2022-08-20 13:48 | XRAY ---
Indication: Pain following fall. Comparison: None 3 view left ankle demonstrates nondisplaced oblique acute fracture distal shaft fibula with soft tissue swelling. Elsewhere osteopenia and small heel spurs. No other bony, articular, or soft tissue abnormalities.
--- NOTE | 2022-08-20 13:53 | XRAY ---
Indication: Pain following fall. Comparison: None 3 nonweightbearing views left foot demonstrates nondisplaced acute fractures base 2nd/3rd proximal phalanges. 2nd phalanx fracture demonstrates intra-articular extension. Elsewhere osteopenia, cuboid/navicular accessory ossicles, and heel spurs. No other bony, articular, or soft tissue abnormalities.
[2022-08-20 15:29] VITALS: BP 134/72; PULSE 72
== END 2022-08-20 15:29 | disposition home or self-care (01) ==
LOC: ED 12:29
DX: S82.832A Other fracture of upper and lower end of left fibula, initial encounter for closed fracture (principal); S92.512A Displaced fracture of proximal phalanx of left lesser toe(s), initial encounter for closed fracture; S20.212A Contusion of left front wall of thorax, initial encounter; W18.09XA Striking against other object with subsequent fall, initial encounter; E11.9 Type 2 diabetes mellitus without complications; Z79.84 Long term (current) use of oral hypoglycemic drugs; Z79.891 Long term (current) use of opiate analgesic; Z79.899 Other long term (current) drug therapy
CPT/HCPCS: 29515; 71045; 71100; 73590; 73610; 73630; 99283; A9270-GY